=== PATIENT | female | born 1955 | race Caucasian/White ===

== ENCOUNTER → 2018-01-19 | Outpatient (CLI) | payer OTHER ==
--- NOTE | 2018-01-19 16:25 | PCVCIMAG ---
EXAM: BILATERAL CAROTID DUPLEX INDICATION: Carotid Occlusive Disease. FINDINGS: Doppler Measurements (centimeters per second): RIGHT: Peak CCA-93, Peak ECA-123, Diastolic ICA-21, Peak ICA-113, ICA/CCA Ratio-1.2. LEFT: Peak CCA-95, Peak ECA-82, Diastolic ICA-32, Peak ICA-106, ICA/CCA Ratio-1.1. RIGHT CAROTID: The carotid bulb has moderate plaque. The proximal internal carotid artery shows <40% stenosis. The common carotid artery shows no significant stenosis. The external carotid artery shows no significant stenosis. LEFT CAROTID: The carotid bulb has moderate plaque. The proximal internal carotid artery shows <40% stenosis. The common carotid artery shows no significant stenosis. The external carotid artery shows no significant stenosis. Antegrade flow in both vertebral arteries. IMPRESSION: <40% stenosis of the right internal carotid artery with moderate plaque. <40% stenosis of the left internal carotid artery with moderate plaque. LOC:[place] [id number]
--- NOTE | 2018-01-19 16:30 | PCVCIMAG ---
EXAM: ARTERIAL DUPLEX RIGHT UPPER EXTREMITY INDICATION: Decreased pulses right arm. Previous right innominate/proximal right common carotid artery stent extending across origin right subclavian artery. FINDINGS: Right arm: Satisfactory color flow throughout prior right innominate artery stent. No evidence of flow-limiting stenosis in the innominate artery, right subclavian, axillary, or brachial arteries. Slight blunting of the arterial upstroke in the subclavian artery may be related to prior stent extending over its origin. IMPRESSION: No obvious flow-limiting stenosis right upper extremity as detailed above. Slight blunting of the arterial waveforms in the right subclavian artery as described. LOC:[id number]
== END | disposition home or self-care (01) ==
LOC: PCVCIMAG 15:40
PROVIDERS: ATTEND Nuclear Medicine Nuclear Cardiology
DX: I65.23 Occlusion and stenosis of bilateral carotid arteries (principal); I73.9 Peripheral vascular disease, unspecified
CPT/HCPCS: 93880; 93931

== ENCOUNTER → 2018-01-21 | Outpatient (CLI) | payer OTHER ==
[~2018-01-21] MED LIST: ASPIRIN 325 MG TABLET ONE; CLOPIDOGREL BISULFATE 75 MG TABLET ONE; DIAZEPAM 10 MG TABLET. ONE; EPTIFIBATIDE BOLUS 2,000 MCG/ML 10ML VIAL. IV ONE; FAMOTIDINE 20 MG/2 ML VIAL ONE; HEPARIN 1,000 UNIT/ML VIAL for PCVC ONE; HEPARIN SODIUM 5,000 UNIT/ML VIAL for PCVC. ONE; IODIXANOL 270 MG/ML 100 ML VIAL. ONE; IV NORMAL SALINE 1000ML BAG 1,000 ML ONE; IV NORMAL SALINE 500ML BAG 1,000 ML ONE; LIDOCAINE 1%/EPI 1:100,000 20 ML VIAL. ONE; METOPROLOL TARTRATE 5 MG/5 ML VIAL. IVP ONE; MIDAZOLAM HCL/PF 2 MG/2 ML VIAL. ONE; diphenhydrAMINE 50 MG/ML VIAL ONE; fentaNYL PF VIAL 100 MCG/2 ML VIAL ONE; methylPREDNISolone SOD SUCC PF 125 MG/2 ML VIAL. ONE
--- NOTE | 2018-01-21 18:19 | PCVCINTER ---
EXAM: 1. AORTOGRAM AND BILATERAL LOWER EXTREMITY RUNOFF ANGIOGRAM 2. BILATERAL RENAL ANGIOGRAPHY 3. CERVICOCEPHALIC ARCH AORTOGRAM 4. RIGHT SUBCLAVIAN/INNOMINATE ARTERY ANGIOGRAM 5. LEFT PROXIMAL SUPERFICIAL FEMORAL ARTERY ATHERECTOMY AND DRUG COATED BALLOON ANGIOPLASTY. 6. SECONDARY THROMBECTOMY LEFT SUPERFICIAL FEMORAL ARTERY. 7. RIGHT COMMON ILIAC ARTERY STENT PLACEMENT. 8. LEFT COMMON ILIAC ARTERY STENT PLACEMENT. INDICATION: Peripheral arterial disease. 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 Bilateral short distance leg claudication. Hypertension. Renal atherosclerosis. No prior catheter based angiographic study is available. A full diagnostic angiogram study is performed today and the decision to intervene is based on this diagnostic study. PROCEDURE: Procedure and risks of angiography intervention is appropriate including limb loss stroke and were discussed with the patient's family and consent obtained. The patient's right groin was prepped in the normal sterile fashion. IV conscious sedation was used throughout procedure with appropriate monitoring from 9:45 AM through 10:45 AM.. Ultrasound was used to interrogate the right groin and showed the right common femoral artery to be patent. A permanent spot film was obtained. Under ultrasound guidance access into the right common femoral artery was obtained and a 5 [place] sheath was placed. Through this a 5 [place] flush catheter was placed into the ascending thoracic aorta and cervical cephalic arch aortogram obtained. Catheter was then placed into the the abdominal aorta at the level of the renal arteries and AP aortogram was performed. Catheter was positioned at the aortic bifurcation and both oblique views of the pelvis were obtained. The diagnostic catheter was then positioned into the right innominate artery and innominate/right subclavian angiography performed. Catheter was positioned into the right external iliac artery and right leg runoff angiography was performed. Catheter was exchanged for a visceral catheter was placed into the right renal arteries and right renal angiograms obtained. Catheter was placed into the the left renal arteries and left renal angiograms were obtained. Catheter was advanced to the level of the left external iliac artery and left leg runoff angiography was obtained. Patient was given 4000 units of heparin. A 6 [place] crossover sheath was placed via the right groin to the level of the left common femoral artery. Atherectomy of the left superficial femoral artery origin was performed with 2.0 mm Tectura laser atherectomy catheter in the standard fashion. Following atherectomy small areas of thrombus were observed and because of this secondary thrombectomy throughout the left superficial femoral artery was carried out with mechanical suction thrombectomy catheter in the standard fashion. Minimal debris was removed. Following this drug coated balloon angioplasty of the left proximal superficial femoral artery was carried out with a 5 x 40 Tectura Chiquita Reza [employer]ATOR catheter. Stent placement across the areas of high-grade stenosis in the left common iliac artery was carried out with a 8 x 40 Smart control stent with subsequent dilatation to 6.0 mm. Stent placement across the areas of high-grade stenosis in the right common iliac artery was carried out with a 8 x 40 Smart control stent with subsequent dilatation to 6.0 mm. Follow-up angiogram was performed. Catheters and wires removed. Sheath was removed and hemostasis obtained using the FISH device. No immediate complications. FINDINGS: Cervicocephalic arch aortogram: Previous stent in the innominate artery and extending into the proximal common carotid artery remains widely patent. The right common carotid artery maintains good patency where visualized. The left common carotid artery and left subclavian artery both show good patency. The right vertebral artery is not visualized and believed occluded. The left vertebral artery is large in size showing good patency. Innominate/right subclavian angiogram: The origin of the right subclavian artery as detailed but maintains good patency. The right axillary artery and upper brachial artery are patent. The innominate artery stent maintaining good patency as well. Aortogram: The right renal artery is normal in size the left renal artery is diminutive in size. Moderate plaque infrarenal abdominal aorta without significant stenosis. Pelvis: 90% stenosis mid right common iliac artery. Moderate stenosis left common iliac artery. Moderately high-grade stenosis at the origins of the internal iliac arteries bilaterally. The right common femoral and profunda femoral arteries are patent. The right and left external iliac arteries show adequate patency. The left common femoral artery is patent. 50% stenosis proximal left profunda femoral artery. Right renal artery: Minimal plaque proximal vessel does not cause significant stenosis. Left renal artery: The left renal artery is diminutive in size with severe tapering of the intrarenal branches consistent with renal atrophy. Right leg: Superficial femoral artery and popliteal artery show good patency. Three-vessel runoff into the foot. Left le% stenosis at the origin the superficial femoral artery. The superficial femoral artery otherwise shows satisfactory patency as is the popliteal artery. Three-vessel runoff into the foot. Left superficial femoral artery: Following procedure as above vessel shows good patency. Left common iliac artery: Following procedure as above vessel shows good patency. Right common iliac artery: Following procedure as above vessel shows good patency. IMPRESSION: Right and left common iliac artery stenoses and stenosis at the origin of the left superficial femoral artery were treated as above with good patency restored. Previous innominate artery/proximal right common carotid artery stent is maintaining good patency as is the origin of the right subclavian artery. LOC:[id number]
== END | disposition home or self-care (01) ==
LOC: PCVCINTER 10:41
PROVIDERS: ATTEND Internal Medicine
DX: I70.213 Atherosclerosis of native arteries of extremities with intermittent claudication, bilateral legs (principal); I70.1 Atherosclerosis of renal artery; I70.0 Atherosclerosis of aorta; I10 Essential (primary) hypertension; I77.1 Stricture of artery; E78.00 Pure hypercholesterolemia, unspecified; Z98.890 Other specified postprocedural states; Z86.73 Personal history of transient ischemic attack (TIA), and cerebral infarction without residual deficits; F17.210 Nicotine dependence, cigarettes, uncomplicated; Z79.899 Other long term (current) drug therapy
CPT/HCPCS: 36225; 36252; 37186; 37221; 37225; 75710; 75716; 76937; 99152; 99153; C1725; C1751; C1757; C1760; C1769; C1876; C1885; C1894; C2623; J1200; J1327; J1644; J2250; J2930; J3010; J3490; J7030; J7040; Q9966; S0028; 36215; 36221